=== PATIENT | male | born 1995 | race Caucasian/White ===

== ENCOUNTER 2017-10-26 21:18 | Emergency (ER) | payer BC, OTHER ==
[~2017-10-26] VITALS: Ht 172.7 cm; Wt 70.3 kg
[2017-10-26] MEDS ORDERED: ULTRAM PO STA (22:36)
--- NOTE | 2017-10-26 22:40 | ER.PDOC ---
General Chief Complaint: Eye Problems Stated Complaint: SOMETHING IN R EYE Time seen by MD: 22:37 Source: patient Exam Limitations: no limitations History of Present Illness Initial Comments Foreign body in right eye for 2 days. Timing/Duration: abrupt Associated Symptoms: pian Location: right eye Severity: moderate Context: foreign body Allergies: Coded Allergies: Penicillins (Verified Allergy, Unknown, Hives, 04/27/15) codeine (Verified Allergy, Unknown, Rash, 04/27/15) Home Meds No Active Prescriptions or Reported Meds Past Medical History Medical History: no pertinent history Surgical History: no surgical history Social History Smoking: non-smoker Alcohol Use: none Drug Use: none Constitutional: no symptoms reported Eyes: see HPI Mouth: no symptoms reported Throat: no symptoms reported Respiratory: no symptoms reported Cardiovascular: no symptoms reported Gastrointestinal: no symptoms reported All Other Systems: Reviewed and Negative Physical Exam General Appearance: alert, no distress Visual Acuity: no globe trauma Eyelid: nml inspection Conjunctiva/Sclera: (R) injected Corneas: nml inspection EOM's: intact, no nystagmus Pupils: PERRL, nml accommodation Head/ENT: nml inspection, pharynx nml Skin Exam: Normal Color, Warm/Dry Neck/Back: nml inspection, painless ROM Resp/CVS: no resp distress, lungs clear, heart sounds nml, reg. rate & rhythm Abdomen: non-tender, no organomegaly NEURO/PSYCH: oriented X3, mood/effect nml Course Blood Pressure Systolic: 153 Blood Pressure Diastolic: 73 Blood Pressure Mean: 99 Departure Time of Disposition: 22:38 Disposition: 01 HOME, SELF-CARE Impression: Primary Impression: Foreign body of ear, right Qualified Codes: T16.1XXA - Foreign body in right ear, initial encounter Condition: Stable Referrals: EM MONTEIRO MD (PCP) PRIMARY CARE PROVIDER [facility] Additional Instructions: Follow up with [facility] [employer] at [facility] tomorrow, call for appointment. Scripts No Active Prescriptions or Reported Meds Duration or Time Spent with Pa: 30 mins NOÉ WOLFE MD Oct 26, 2017 22:40
[2017-10-26] MEDS ORDERED: ULTRAM ONE (22:46)
[2017-10-26 22:55] VITALS: BP 153/73
== END 2017-10-26 22:51 | disposition home or self-care (01) ==
LOC: ER 21:18
DX: T15.91XA Foreign body on external eye, part unspecified, right eye, initial encounter (principal); Z88.0 Allergy status to penicillin; Z88.5 Allergy status to narcotic agent; X58.XXXA Exposure to other specified factors, initial encounter; Y93.89 Activity, other specified; Y92.89 Other specified places as the place of occurrence of the external cause; Y99.8 Other external cause status
CPT/HCPCS: 99282

== ENCOUNTER 2017-11-30 05:53 | Emergency (ER) | payer BC ==
[~2017-11-30] VITALS: Ht 172.7 cm; Wt 71.7 kg
--- NOTE | 2017-11-30 05:59 | NUR ---
LAC SMALL APPROX 1CM LACERATION TO LEFT PALM, NO BLEEDING
[2017-11-30 06:07] VITALS: BP 125/66
--- NOTE | 2017-11-30 06:09 | ER.PDOC ---
General Chief Complaint: Medical Clearance Stated Complaint: MED CLEARANCE TRAVEL OUT OF US: No Time seen by MD: 06:00 Source: patient, police Exam Limitations: no limitations History of Present Illness Initial Comments Pt was brought in by police as he was incarcerated in a case of a a murder. He has a superficial abrasion on left hand and wrist Allergies: Coded Allergies: Penicillins (Verified Allergy, Unknown, Hives, 04/27/15) codeine (Verified Allergy, Unknown, Rash, 04/27/15) Home Meds No Active Prescriptions or Reported Meds Past Medical History Medical History: no pertinent history Surgical History: no surgical history Social History Smoking: cigarettes, less than 1 pack/day Alcohol Use: none Drug Use: marijuana Review of Systems Constitutional: see HPI Musculoskeletal: see HPI All Other Systems: Reviewed and Negative Physical Exam General Appearance: No Apparent Distress EENT: nml ENT inspection Neck: Full Range of Motion Respiratory: chest non-tender, lungs clear CVS: reg rate & rhythm Gastrointestinal: Normal Bowel Sounds, No Pulsatile Mass, Non Tender Back: Normal Inspection, No CVA Tenderness Extremities: Other (abrasion at left hands and wrist ) Skin: Normal Color Departure Time of Disposition: 06:09 Disposition: 05 DISCH/XFER OTHER Impression: Primary Impression: Medical clearance for incarceration Condition: Stable Scripts No Active Prescriptions or Reported Meds Duration or Time Spent with Pa: YAZ MOTLEY MD November 30, 2017 06:09
== END 2017-11-30 06:07 | disposition short-term general hospital (02) ==
LOC: ER 05:53
DX: Z02.89 Encounter for other administrative examinations (principal); S60.512A Abrasion of left hand, initial encounter; S60.812A Abrasion of left wrist, initial encounter; F17.210 Nicotine dependence, cigarettes, uncomplicated; F12.10 Cannabis abuse, uncomplicated; Z88.0 Allergy status to penicillin; Z88.5 Allergy status to narcotic agent; X58.XXXA Exposure to other specified factors, initial encounter; Y93.89 Activity, other specified; Y92.89 Other specified places as the place of occurrence of the external cause; Y99.8 Other external cause status
CPT/HCPCS: 99283; 99285

== ENCOUNTER 2017-12-03 15:01 | Emergency (ER) | payer SELFPAY, BC ==
[~2017-12-03] VITALS: Ht 170.2 cm; Wt 58.1 kg
[2017-12-03 15:09] VITALS: BP 143/88
--- NOTE | 2017-12-03 15:17 | NUR ---
CT PT OUT OF ROOM TO CT
--- NOTE | 2017-12-03 15:21 | ER.PDOC ---
General Chief Complaint: Headache Stated Complaint: REQUESTING Time seen by MD: 15:00 Source: patient, police Exam Limitations: no limitations History of Present Illness Initial Comments Pt brought from sn[facility], due to self inflicted head contusions with apparent LOC Where: other ([facility]) Severity: moderate Location: frontal Method of Injury: direct blow Associated symptoms: Lost consciousness Allergies: Coded Allergies: Penicillins (Verified Allergy, Unknown, Hives, 04/27/15) codeine (Verified Allergy, Unknown, Rash, 04/27/15) Home Meds No Active Prescriptions or Reported Meds Past Medical History Medical History: no pertinent history Surgical History: no surgical history Social History Smoking: non-smoker Alcohol Use: none Drug Use: marijuana Review of Systems Constitutional: no symptoms reported Eyes: no symptoms reported Ears, Nose, Mouth, Throat: no symptoms reported Respiratory: no symptoms reported Cardiovascular: no symptoms reported Gastrointestinal: no symptoms reported Genitourinary: no symptoms reported Musculoskeletal: no symptoms reported Skin: no symptoms reported Psychiatric/Neurological: no symptoms reported, see HPI, headache Endocrine: no symptoms reported Hematologic/Lymphatic: no symptoms reported Physical Exam General Appearance: Alert, No Apparent Distress, WD/WN Head: Contusions (several contusions on frontal area), Ecchymosis, Swelling Eye: PERRL, EOMI, No nystagmus ENT: Nml external inspection, Pharynx nml Neck: non-tender, painless ROM, trachea midline Cardiovascular/Respiratory: Regular Rate, Rhythm, No M/R/G, Normal Peripheral Pulses, No JVD, Normal Breath Sounds, No Respiratory Distress Gastrointestinal: Normal Bowel Sounds, No Organomegaly, No Pulsatile Mass, Non Tender, Soft Extremities: Normal Range of Motion, Non-Tender, Normal Inspection, No Pedal Edema, No Calf Tenderness, Normal Capillary Refill NEURO/PSYCH: Alert, Oriented x3, Cooperative, Interactive, Mood/affect nml Cranial Nerves: Normal Hearing, Normal Speech, PERRL Coordination/Gait: Normal Finger to Nose, Normal Gait Motor/Sensory: No Motor Deficit, No Sensory Deficit, No Pronator Drift, Negative Babinski's Sign Skin: Normal Color, Warm/Dry Lymphatic: No Adenopathy Rutland Coma Score Best Eye Response: (4) Open Spontaneously Best Verbal Response: (5) Oriented Best Motor Response: (6) Obeys Commands Departure Time of Disposition: 15:45 Disposition: 01 HOME, SELF-CARE Impression: Primary Impression: Contusion of scalp Additional Impression: Concussion Condition: Stable Patient Instructions: Head Injury, Adult, [id number] Referrals: EM MONTEIRO MD (PCP) PRIMARY CARE PROVIDER Scripts No Active Prescriptions or Reported Meds Duration or Time Spent with Pa: 10 KENJI NULL MD December 03, 2017 15:21
--- NOTE | 2017-12-03 15:27 | NUR ---
CT PATIENT BACK FROM CT, SECURED IN ROOM
--- NOTE | 2017-12-03 15:42 | DIREP ---
PROCEDURE:CT HEAD OR BRAIN W/O CONTRAST COMPARISON:[facility], CT, CT ORBIT SELLA FOSSA EAR W/O, 09/08/2016, 03:30 PM. [facility], CT, CT HEAD BRAIN W/O CONTRAST, 06/13/2016, 04:27 PM. INDICATIONS:Head injury TECHNIQUE:Axial CT images were obtained from vertex to the skull base without the administration of IV contrast. FINDINGS: VENTRICLES: The ventricles are normal in size and configuration. No hydrocephalus. CEREBRUM: Normal cerebral morphology with appropriate navarro white matter differentiation. No intracranial hemorrhage, mass-effect, or midline shift. No CT evidence of acute infarction. CEREBELLUM: Normal. BRAINSTEM: Normal. BASAL CISTERNS: Normal. SKULL: Normal. No fracture. Previous noted right lateral orbital wall fracture has healed. SINUSES: Normal. Visualized paranasal sinuses and mastoid air cells are clear. OTHER: Mild right frontal and midline frontal scalp swelling. CONCLUSION: 1. No acute intracranial abnormality. 2. Mild right frontal and midline frontal scalp swelling. Dictated by: José Brennan MD on 12/03/2017 at 03:38 PM
[2017-12-03] MEDS ORDERED: TYLENOL PO STA (15:46)
[2017-12-03] MEDS ORDERED: TYLENOL PO ONE (15:46)
[2017-12-03 15:55] VITALS: BP 144/67
[2017-12-03 16:01] VITALS: BP 144/67
== END 2017-12-03 15:57 | disposition home or self-care (01) ==
LOC: ER 15:01
DX: S06.0X0A Concussion without loss of consciousness, initial encounter (principal); Z88.0 Allergy status to penicillin; Z88.5 Allergy status to narcotic agent; X83.8XXA Intentional self-harm by other specified means, initial encounter; Y93.89 Activity, other specified; Y92.148 Other place in prison as the place of occurrence of the external cause; Y99.8 Other external cause status
CPT/HCPCS: 70450; 99284; A9150